=== PATIENT | male | born 1970 | race Caucasian/White ===

== ENCOUNTER 2017-05-15 19:53 | Emergency (ER) | payer SELFPAY ==
[~2017-05-15] VITALS: Ht 170.2 cm; Wt 66.0 kg
[2017-05-15 19:55] VITALS: BP 128/90; PULSE 101; RESP 16; TEMP 98.6; O2SAT 97
--- NOTE | 2017-05-16 01:19 | PD ---
HPI Chief Complaint: Psychiatric Symptoms Time Seen by Provider: 01:09 Travel History International Travel<30 days: No Contact w/Intl Traveler<30days: No Traveled to known affect area: No History of Present Illness HPI Patient comes in requesting help states he feels people are threatening him and his family. Patient is uncertain how long this has been going. When asked what year it is patient states 2020. Patient is alert to his name, date of , and president of [facility]. Patient denies any medical history or problems. Patient denies taking any medication on a regular basis. Patient denies contacting police regarding his concerns and does not want them contacted at this time. Patient denies any chest pain, shortness of breath, abdominal pain, nausea, vomiting, diarrhea, headaches, numbness or tingling anywhere. Patient denies anything making his fears better or worse. Patient started saying something about the [place]. When asked what was going on with the [place] the patient replies he does not want to get the [place] trouble. Patient denies any homicidal or suicidal ideations. [facility] Past Medical History Medical History: Denies Significant Hx Social History Alcohol Use: No Tobacco Use: Yes Substance Use: No Allergies-Medications (Allergen,Severity, Reaction): Coded Allergies: No Known Allergies (Unverified , 05/16/17) Reported Meds & Prescriptions Reported Meds & Active Scripts Active No Active Prescriptions or Reported Medications Review of Systems Except as stated in HPI: all other systems reviewed are Neg Physical Exam Narrative GENERAL: Well-developed, well nourished, in no acute distress, and non-ill appearing. SKIN: Focused skin assessment warm and dry. HEAD: Atraumatic. Normocephalic. EYES: Pupils equal and round. EOMI. No scleral icterus. No injection or drainage. ENT: No nasal bleeding or discharge. Mucous membranes pink and moist. NECK: Trachea midline. Supple. No nuclear rigidity. CARDIOVASCULAR: Regular rate and rhythm. No murmur appreciated. RESPIRATORY: No accessory muscle use. No respiratory distress. Clear to auscultation. Breath sounds equal bilaterally. MUSCULOSKELETAL: No obvious deformities. No clubbing. No cyanosis. No edema. Full range of motion. NEUROLOGICAL: Awake and alert. No obvious cranial nerve deficits. Motor grossly within normal limits. Normal speech. PSYCHIATRIC: Flight of ideas. Data Data Last Documented VS Vital Signs Date Time Temp Pulse Resp B/P Pulse Ox O2 Delivery O2 Flow Rate FiO2 05/16/17 01:08 101 16 05/15/17 19:55 98.6 128/90 97 Room Air Orders Complete Blood Count With Diff (05/16/17 01:06) Comprehensive Metabolic Panel (05/16/17 01:06) Psych Screen (05/16/17 01:06) Drug Screen, Random Urine (05/16/17 01:06) Alcohol (Ethanol) (05/16/17 01:06) Labs Laboratory Tests Test 05/16/17 01:15 White Blood Count 12.4 TH/MM3 Red Blood Count 5.25 MIL/MM3 Hemoglobin 15.8 GM/DL Hematocrit 48.2 % Mean Corpuscular Volume 91.7 FL Mean Corpuscular Hemoglobin 30.1 PG Mean Corpuscular Hemoglobin 32.8 % Concent Red Cell Distribution Width 14.0 % Platelet Count 237 TH/MM3 Mean Platelet Volume 9.6 FL Neutrophils (%) (Auto) 70.1 % Lymphocytes (%) (Auto) 21.7 % Monocytes (%) (Auto) 6.7 % Eosinophils (%) (Auto) 0.7 % Basophils (%) (Auto) 0.8 % Neutrophils # (Auto) 8.7 TH/MM3 Lymphocytes # (Auto) 2.7 TH/MM3 Monocytes # (Auto) 0.8 TH/MM3 Eosinophils # (Auto) 0.1 TH/MM3 Basophils # (Auto) 0.1 TH/MM3 CBC Comment DIFF FINAL Differential Comment Sodium Level 144 MEQ/L Potassium Level 3.9 MEQ/L Chloride Level 109 MEQ/L Carbon Dioxide Level 28.1 MEQ/L Anion Gap 7 MEQ/L Blood Urea Nitrogen 15 MG/DL Creatinine 1.02 MG/DL Estimat Glomerular Filtration 78 ML/MIN Rate Random Glucose 92 MG/DL Calcium Level 9.3 MG/DL Total Bilirubin 0.7 MG/DL Aspartate Amino Transf 13 U/L (AST/SGOT) Alanine Aminotransferase 25 U/L (ALT/SGPT) Alkaline Phosphatase 90 U/L Total Protein 7.9 GM/DL Albumin 4.2 GM/DL Ethyl Alcohol Level LESS THAN 3 MG/DL MDM Medical Decision Making Medical Screen Exam Complete: Yes Emergency Medical Condition: Yes Differential Diagnosis Acute psychosis, electrolyte abnormality, alcohol intoxication, drug induced psychosis, paranoia, other Narrative Course Patient was seen and examined. Labs were obtained and reviewed with exception of urine drug screen. Slightly elevated, likely stress-induced. Patient medically cleared for further treatment and evaluation by psych. Final disposition per psych. Diagnosis Primary Impression: Medical clearance for psychiatric admission Scripts No Active Prescriptions or Reported Meds Condition: Stable Ozzie Wharton May 16, 2017 01:18 Ozzie Wharton May 16, 2017 01:18
[2017-05-16 01:29] LABS: AUTOMATED NEUTROPHIL # 8.7 TH/MM3 (1.8-7.7); BASOPHIL # 0.1 TH/MM3 (0-0.2); BASOPHIL % 0.8 % (0.0-2.0); EOSINOPHIL # 0.1 TH/MM3 (0-0.4); EOSINOPHIL % 0.7 % (0.0-4.0); HEMATOCRIT 48.2 % (39.0-51.0); HEMO FLAGS DIFF FINAL; LYMPH % 21.7 % (9.0-44.0); LYMPHOCYTE # 2.7 TH/MM3 (1.0-4.8); MEAN CELL VOLUME 91.7 FL (80.0-100.0); MEAN CORPUSCULAR HEMOGLOBIN 30.1 PG (27.0-34.0); MEAN CORPUSCULAR HGB CONC 32.8 % (32.0-36.0); MONO % 6.7 % (0.0-8.0); NEUT % 70.1 % (16.0-70.0); PLATELET COUNT 237 TH/MM3 (150-450); RED BLOOD COUNT 5.25 MIL/MM3 (4.50-5.90); WHITE BLOOD COUNT 12.4 TH/MM3 (4.0-11.0)
[2017-05-16 01:44] LABS: ALT (GPT) 25 U/L (12-78); ANION GAP 7 MEQ/L (5-15); AST (GOT) 13 U/L (15-37); BICARBONATE 28.1 MEQ/L (21.0-32.0); BLOOD UREA NITROGEN 15 MG/DL (7-18); CHLORIDE 109 MEQ/L (98-107); GLOMERULAR FILTRATION RATE 78 ML/MIN (>89); POTASSIUM 3.9 MEQ/L (3.5-5.1); SODIUM (NA) 144 MEQ/L (136-145)
[2017-05-16 01:46] LABS: ALKALINE PHOSPHATASE 90 U/L (45-117); TOTAL BILIRUBIN ADULT 0.7 MG/DL (0.2-1.0)
== END 2017-05-16 10:50 | disposition left against medical advice (07) ==
LOC: NEPD 19:53
DX: R68.89 Other general symptoms and signs (principal); Z72.0 Tobacco use
CPT/HCPCS: 80053; 80307; 85025; 99283

== ENCOUNTER 2017-05-16 11:53 | Emergency (ER) | payer SELFPAY ==
[~2017-05-16] VITALS: Ht 170.2 cm; Wt 66.0 kg
[2017-05-16 11:55] VITALS: BP 154/103; PULSE 122; RESP 16; TEMP 98.1; O2SAT 98
--- NOTE | 2017-05-16 12:51 | PD ---
HPI Chief Complaint: Psychiatric Symptoms Time Seen by Provider: 12:50 Travel History International Travel<30 days: No Contact w/Intl Traveler<30days: No Traveled to known affect area: No History of Present Illness HPI 47-year-old male presents to the emergency Department under [place] act by local police. According to the officer at bedside, the patient was in a grocery store screaming. He stated that people are out to kill him. Please officer placed him under [place] act and brought him to the heart. The patient tells me that he lives in [place]. He is aware that he is at the hospital didn't tell me that the Fourth of May just passed as well as the month is May. He tells me the present denies states this. However, he states that he does not know the year and states is . The patient denies any chronic medical problems to me or taking any prescribed medications. The patient denies any medical complaints to me today. No chest or shortness breath. No abdominal pain. No nausea, vomiting, diarrhea. The patient denies any alcohol, illicit drug use. Patient was seen in the emergency department this morning and apparently left AGAINST MEDICAL ADVICE. Lab work was completed at that time. [facility] Past Medical History Psychiatric: Yes Past Surgical History Surgical History: No Previous Surgery Social History Alcohol Use: No Tobacco Use: Yes Substance Use: Yes Allergies-Medications (Allergen,Severity, Reaction): Coded Allergies: No Known Allergies (Unverified , 05/16/17) Reported Meds & Prescriptions Reported Meds & Active Scripts Active No Active Prescriptions or Reported Medications Review of Systems Except as stated in HPI: all other systems reviewed are Neg Physical Exam Exam Limitations: Psychotic Narrative GENERAL: Well-nourished, well-developed male patient, afebrile. Patient has flight of ideas. SKIN: Focused skin assessment warm/dry. HEAD: Normocephalic. Atraumatic. EYES: No scleral icterus. No injection or drainage. NECK: Supple, trachea midline. No JVD or lymphadenopathy. CARDIOVASCULAR: Regular rate and rhythm without murmurs, gallops, or rubs. RESPIRATORY: Breath sounds equal bilaterally. No accessory muscle use. Lungs sounds are clear to auscultation. GASTROINTESTINAL: Abdomen soft, non-tender, nondistended. MUSCULOSKELETAL: No cyanosis, or edema. BACK: Nontender without obvious deformity. No CVA tenderness. PSYCHIATRIC: No hallucinations. Patient has flight of ideas. Data Data Last Documented VS Vital Signs Date Time Temp Pulse Resp B/P Pulse Ox O2 Delivery O2 Flow Rate FiO2 05/16/17 13:31 92 97 05/16/17 11:55 98.1 16 154/103 Orders Psych Screen (05/16/17 12:52) Drug Screen, Random Urine (05/16/17 12:52) Labs Laboratory Tests Test 05/16/17 13:00 Urine Opiates Screen NEG Urine Barbiturates Screen NEG Urine Amphetamines Screen NEG Urine Benzodiazepines Screen NEG Urine Cocaine Screen NEG Urine Cannabinoids Screen NEG MDM Medical Decision Making Medical Screen Exam Complete: Yes Emergency Medical Condition: Yes Medical Record Reviewed: Yes Differential Diagnosis bipolar disorder vs. substance abuse vs. mood disorder vs. schizophrenia Narrative Course 47-year-old male presents to the emergency Department under [place] act by local police. I reviewed laboratory findings from earlier. Patient has slight leukocytosis of 12.4, likely stress reaction. CMP showed no acute abnormality. Alcohol level is less than 3. Urine drug screen is ordered and pending. UDS is negative. Patient is medically cleared for psychiatric screening and disposition. Mental health screening discussed with the patient. Psychiatric screen ordered. Diagnosis Primary Impression: Medical clearance for psychiatric admission Additional Instructions: Patient is medically cleared for psychiatric screening and disposition. Scripts No Active Prescriptions or Reported Meds Condition: Stable Amber Sims May 16, 2017 12:51 Amber Sims May 16, 2017 12:51
[2017-05-16 13:20] LABS: AMPHETAMINE, URINE NEG (NEG); BARBITURATES, URINE NEG (NEG); COCAINE, URINE NEG (NEG)
[2017-05-16 13:31] VITALS: PULSE 92; O2SAT 97
[2017-05-16] MEDS ORDERED: diphenhydrAMINE HCL 50 MG/ML VIAL IM ONE (21:00)
[2017-05-16] MEDS ORDERED: OLANZapine IM 10 MG VIAL IM ONE (21:00)
[2017-05-16 22:00] VITALS: BP 140/88; PULSE 83; RESP 18
== END 2017-05-17 02:20 ==
LOC: NEPD 11:53 → NEPJ 05-17 02:20
DX: Z00.8 Encounter for other general examination (principal); D72.829 Elevated white blood cell count, unspecified; Z72.0 Tobacco use
CPT/HCPCS: 80307; 96372; 99284; J1200

== ENCOUNTER 2017-05-19 16:37 | Emergency (ER) | payer SELFPAY ==
[2017-05-19 17:17] LABS: AUTOMATED NEUTROPHIL # 6.3 TH/MM3 (1.8-7.7); BASOPHIL # 0.1 TH/MM3 (0-0.2); BASOPHIL % 1.2 % (0.0-2.0); EOSINOPHIL # 0.2 TH/MM3 (0-0.4); EOSINOPHIL % 1.9 % (0.0-4.0); HEMATOCRIT 43.1 % (39.0-51.0); HEMO FLAGS DIFF FINAL; LYMPH % 30.3 % (9.0-44.0); LYMPHOCYTE # 3.3 TH/MM3 (1.0-4.8); MEAN CELL VOLUME 92.9 FL (80.0-100.0); MEAN CORPUSCULAR HEMOGLOBIN 30.3 PG (27.0-34.0); MEAN CORPUSCULAR HGB CONC 32.6 % (32.0-36.0); MONO % 8.6 % (0.0-8.0); PLATELET COUNT 211 TH/MM3 (150-450); RED BLOOD COUNT 4.64 MIL/MM3 (4.50-5.90); RED CELL DISTRIBUTION WIDTH 13.9 % (11.6-17.2); WHITE BLOOD COUNT 10.9 TH/MM3 (4.0-11.0)
[2017-05-19 17:31] LABS: AMPHETAMINE, URINE NEG (NEG); BARBITURATES, URINE NEG (NEG); COCAINE, URINE NEG (NEG)
[2017-05-19 17:46] LABS: ALKALINE PHOSPHATASE 78 U/L (45-117); ALT (GPT) 25 U/L (12-78); ANION GAP 10 MEQ/L (5-15); AST (GOT) 31 U/L (15-37); BICARBONATE 26.3 MEQ/L (21.0-32.0); BLOOD UREA NITROGEN 16 MG/DL (7-18); CHLORIDE 108 MEQ/L (98-107); GLOMERULAR FILTRATION RATE 82 ML/MIN (>89); SODIUM (NA) 144 MEQ/L (136-145); TOTAL BILIRUBIN ADULT 0.3 MG/DL (0.2-1.0)
--- NOTE | 2017-05-19 18:33 | PD ---
HPI Chief Complaint: Altered Mental Status Time Seen by Provider: 18:00 Travel History International Travel<30 days: No Contact w/Intl Traveler<30days: No Traveled to known affect area: No History of Present Illness HPI Patient is a 47-year-old male presenting to the emergency department from [facility] for medical clearance. The are requesting a neurological examination. Patient was seen and evaluated 3 days ago when he was brought in under [place] act for hallucinations. Patient reports to me that people are trying to decompress him. He denies any physical complaints at this time, he denies any suicidal or homicidal ideations. He denies any hallucinations. He does know the month, he does not know the year or the day of the week. PFSH Past Medical History Medical History: Denies Significant Hx Psychiatric: Yes Past Surgical History Surgical History: Unable to Obtain Social History Alcohol Use: No Tobacco Use: Yes Substance Use: Yes Allergies-Medications (Allergen,Severity, Reaction): Coded Allergies: No Known Allergies (Unverified , 05/16/17) Reported Meds & Prescriptions Reported Meds & Active Scripts Active No Active Prescriptions or Reported Medications Review of Systems Except as stated in HPI: all other systems reviewed are Neg Psychiatric: Positive: Disorder of Thought, Mood Disorder Physical Exam Narrative GENERAL: Well-developed, well-nourished, alert male. Sitting comfortably in no acute distress. SKIN: Warm and dry. HEAD: Atraumatic. Normocephalic. EYES: Pupils equal and round. No scleral icterus. No injection or drainage. ENT: No nasal bleeding or discharge. Mucous membranes pink and moist. NECK: Trachea midline. No JVD. CARDIOVASCULAR: Regular rate and rhythm. RESPIRATORY: No accessory muscle use. Clear to auscultation. Breath sounds equal bilaterally. GASTROINTESTINAL: Abdomen soft, non-tender, nondistended. Hepatic and splenic margins not palpable. MUSCULOSKELETAL: Extremities without clubbing, cyanosis, or edema. No obvious deformities. NEUROLOGICAL: Awake and alert. No obvious cranial nerve deficits. Motor grossly within normal limits. Five out of 5 muscle strength in the arms and legs. Normal speech. PSYCHIATRIC: Appropriate mood and affect; insight and judgment impaired. Paranoid hallucinations Data Data Last Documented VS Vital Signs Date Time Temp Pulse Resp B/P Pulse Ox O2 Delivery O2 Flow Rate FiO2 05/19/17 18:54 98.2 98 18 133/93 98 Room Air Orders Complete Blood Count With Diff (05/19/17 17:01) Comprehensive Metabolic Panel (05/19/17 17:) Psych Screen (05/19/17 17:) Drug Screen, Random Urine (05/19/17 17:) Alcohol (Ethanol) (05/19/17 17:01) Ct Brain W/O Iv Contrast(Rout) (05/19/17 ) Urinalysis - C+S If Indicated (05/19/17 17:23) Labs Laboratory Tests Test 05/19/17 16:47 White Blood Count 10.9 TH/MM3 Red Blood Count 4.64 MIL/MM3 Hemoglobin 14.0 GM/DL Hematocrit 43.1 % Mean Corpuscular Volume 92.9 FL Mean Corpuscular Hemoglobin 30.3 PG Mean Corpuscular Hemoglobin 32.6 % Concent Red Cell Distribution Width 13.9 % Platelet Count 211 TH/MM3 Mean Platelet Volume 9.8 FL Neutrophils (%) (Auto) 58.0 % Lymphocytes (%) (Auto) 30.3 % Monocytes (%) (Auto) 8.6 % Eosinophils (%) (Auto) 1.9 % Basophils (%) (Auto) 1.2 % Neutrophils # (Auto) 6.3 TH/MM3 Lymphocytes # (Auto) 3.3 TH/MM3 Monocytes # (Auto) 0.9 TH/MM3 Eosinophils # (Auto) 0.2 TH/MM3 Basophils # (Auto) 0.1 TH/MM3 CBC Comment DIFF FINAL Differential Comment Urine Color YELLOW Urine Turbidity CLEAR Urine pH 5.5 Urine Specific [place] 1.031 Urine Protein TRACE mg/dL Urine Glucose (UA) NEG mg/dL Urine Ketones NEG mg/dL Urine Occult Blood NEG Urine Nitrite NEG Urine Bilirubin NEG Urine Urobilinogen LESS THAN 2.0 MG/DL Urine Leukocyte Esterase NEG Urine RBC 2 /hpf Urine WBC 1 /hpf Urine Mucus MOD /lpf Microscopic Urinalysis Comment CULT NOT INDICATED Sodium Level 144 MEQ/L Potassium Level 4.0 MEQ/L Chloride Level 108 MEQ/L Carbon Dioxide Level 26.3 MEQ/L Anion Gap 10 MEQ/L Blood Urea Nitrogen 16 MG/DL Creatinine 0.98 MG/DL Estimat Glomerular Filtration 82 ML/MIN Rate Random Glucose 97 MG/DL Calcium Level 9.0 MG/DL Total Bilirubin 0.3 MG/DL Aspartate Amino Transf 31 U/L (AST/SGOT) Alanine Aminotransferase 25 U/L (ALT/SGPT) Alkaline Phosphatase 78 U/L Total Protein 7.1 GM/DL Albumin 3.8 GM/DL Urine Opiates Screen NEG Urine Barbiturates Screen NEG Urine Amphetamines Screen NEG Urine Benzodiazepines Screen NEG Urine Cocaine Screen NEG Urine Cannabinoids Screen NEG Ethyl Alcohol Level LESS THAN 3 MG/DL MDM Medical Decision Making Medical Screen Exam Complete: Yes Emergency Medical Condition: Yes Medical Record Reviewed: Yes Interpretation(s) Vital Signs Date Time Temp Pulse Resp B/P Pulse Ox O2 Delivery O2 Flow Rate FiO2 05/19/17 18:54 98.2 98 18 133/93 98 Room Air 05/19/17 16:52 16 Laboratory Tests Test 05/19/17 16:47 White Blood Count 10.9 TH/MM3 Red Blood Count 4.64 MIL/MM3 Hemoglobin 14.0 GM/DL Hematocrit 43.1 % Mean Corpuscular Volume 92.9 FL Mean Corpuscular Hemoglobin 30.3 PG Mean Corpuscular Hemoglobin 32.6 % Concent Red Cell Distribution Width 13.9 % Platelet Count 211 TH/MM3 Mean Platelet Volume 9.8 FL Neutrophils (%) (Auto) 58.0 % Lymphocytes (%) (Auto) 30.3 % Monocytes (%) (Auto) 8.6 % Eosinophils (%) (Auto) 1.9 % Basophils (%) (Auto) 1.2 % Neutrophils # (Auto) 6.3 TH/MM3 Lymphocytes # (Auto) 3.3 TH/MM3 Monocytes # (Auto) 0.9 TH/MM3 Eosinophils # (Auto) 0.2 TH/MM3 Basophils # (Auto) 0.1 TH/MM3 CBC Comment DIFF FINAL Differential Comment Urine Color YELLOW Urine Turbidity CLEAR Urine pH 5.5 Urine Specific [place] 1.031 Urine Protein TRACE mg/dL Urine Glucose (UA) NEG mg/dL Urine Ketones NEG mg/dL Urine Occult Blood NEG Urine Nitrite NEG Urine Bilirubin NEG Urine Urobilinogen LESS THAN 2.0 MG/DL Urine Leukocyte Esterase NEG Urine RBC 2 /hpf Urine WBC 1 /hpf Urine Mucus MOD /lpf Microscopic Urinalysis Comment CULT NOT INDICATED Sodium Level 144 MEQ/L Potassium Level 4.0 MEQ/L Chloride Level 108 MEQ/L Carbon Dioxide Level 26.3 MEQ/L Anion Gap 10 MEQ/L Blood Urea Nitrogen 16 MG/DL Creatinine 0.98 MG/DL Estimat Glomerular Filtration 82 ML/MIN Rate Random Glucose 97 MG/DL Calcium Level 9.0 MG/DL Total Bilirubin 0.3 MG/DL Aspartate Amino Transf 31 U/L (AST/SGOT) Alanine Aminotransferase 25 U/L (ALT/SGPT) Alkaline Phosphatase 78 U/L Total Protein 7.1 GM/DL Albumin 3.8 GM/DL Urine Opiates Screen NEG Urine Barbiturates Screen NEG Urine Amphetamines Screen NEG Urine Benzodiazepines Screen NEG Urine Cocaine Screen NEG Urine Cannabinoids Screen NEG Ethyl Alcohol Level LESS THAN 3 MG/DL Vital Signs Date Time Temp Pulse Resp B/P Pulse Ox O2 Delivery O2 Flow Rate FiO2 05/19/17 16:52 16 Differential Diagnosis Psychosis versus mood disorder versus CVA versus UTI versus other Narrative Course Patient is a 47-year-old male sent by [facility] for medical clearance. Patient was seen and evaluated 3 days ago with a negative workup. Labs reviewed , once again they are unremarkable. CT scan of the brain is pending. CT scan of brain is negative for acute abnormality. Patient is again medically cleared. He'll be discharged back to [facility]. Diagnosis Primary Impression: Medical clearance for psychiatric admission Additional Impression: Psychosis Qualified Code: F29 - Psychosis, unspecified psychosis type [facility] Patient Instructions: General Instructions Med/Other Pt SpecificInfo: No Change to Meds Scripts No Active Prescriptions or Reported Meds Disposition: 70 TRANSFER TO OTHER FACILITY Condition: Stable Aida Cuadra May 19, 2017 18:33
[2017-05-19 18:38] LABS: BLOOD, URINE NEG (NEG); COMMENT (UR) CULT NOT INDICATED; CULTURE IF INDICATED CULT NOT INDICATED; GLUCOSE,URINE NEG (NEG); KETONE, URINE NEG (NEG); MUCUS URINE MOD /lpf (OCC); NITRITE,URINE NEG (NEG); PH, URINE 5.5 (5.0-8.5); URINE COLOR YELLOW (YELLW/STRAW)
--- NOTE | 2017-05-19 18:49 | RADRPT ---
EXAM DATE/TIME: 05/19/2017 18:30 [place] COMPARISON: No previous studies available for comparison. INDICATIONS : Behavorial issues, [place] act, delusional and bizzare. RADIATION DOSE: 34.65 CTDIvol (mGy) MEDICAL HISTORY : Psychiatric SURGICAL HISTORY : None. ENCOUNTER: Initial ACUITY: 1 day PAIN SCALE: 0/10 LOCATION: cranial TECHNIQUE: Multiple contiguous axial images were obtained of the head. Using automated exposure control and adj ustment of the mA and/or kV according to patient size, radiation dose was kept as low as reasonably a chievable to obtain optimal diagnostic quality images. DICOM format image data is available electro nically for review and comparison. FINDINGS: CEREBRUM: The ventricles are normal for age. No evidence of midline shift, mass lesion, hemorrhage or acute in farction. No extra-axial fluid collections are seen. POSTERIOR FOSSA: The cerebellum and brainstem are intact. The 4th ventricle is midline. The cerebellopontine angle i s unremarkable. EXTRACRANIAL: The visualized portion of the orbits is intact. SKULL: The calvaria is intact. No evidence of skull fracture. CONCLUSION: Negative for an acute process. Eladio Herrera MD FACR on May 19, 2017 at 18:47 Board Certified Radiologist. This report was verified electronically.
[2017-05-19 18:54] VITALS: BP 133/93; PULSE 98; RESP 18; TEMP 98.2; O2SAT 98
== END 2017-05-19 19:23 | disposition short-term general hospital (02) ==
LOC: NEDAMB 16:37
DX: F29 Unspecified psychosis not due to a substance or known physiological condition (principal); Z72.0 Tobacco use
CPT/HCPCS: 70450; 80053; 80307; 81001; 85025; 99284